=== PATIENT | female | born 1970 | race Caucasian/White ===

== ENCOUNTER → 2016-06-13 | Outpatient (CLI) | payer OTHER ==
--- NOTE | 2016-06-21 00:16 | MA ---
Screening Digital Mammogram With Tomosynthesis and iCAD Indication: Routine screening. Mother diagnosed with breast cancer at the age of 76. Technique: Four views of each breast are obtained including CC and oblique lateral Jensen (implant di splaced) and non-Jensen (implant not displaced) views. Digital breast tomosynthesis was performed in the implant-displaced MLO projection with reconstruction at 1.0 mm slice thickness and composite MLO views reconstructed. This examination is processed by the iCAD computer aided detection system. Comparison: November 2013 Breast density: Type C. Findings: CAD was reviewed. No suspicious microcalcifications, mass, or architectural distortion. Marcin ateral saline implants are unchanged in configuration. Impression: Negative mammograms. BI-RADS 1: Negative Recommendation: Routine screening is recommended in one year, as long as physical examination is anabella ign in this patient with moderately dense breast parenchyma. [facility] will send a result letter to the patient. Negative mammography should not preclude additional workup of a clinically suspicious finding. The patient's information is entered into a reminder system with a target due date for her next mammo gram.
== END ==
LOC: FIMAGING 10:52
DX: Z12.31 Encounter for screening mammogram for malignant neoplasm of breast (principal); Z80.3 Family history of malignant neoplasm of breast
CPT/HCPCS: G0202

== ENCOUNTER → 2016-08-07 | Outpatient (CLI) | payer OTHER ==
[~2016-08-07] MED LIST: GADOBUTROL 10 ML VIAL IVP ONE
== END ==
LOC: FIMAGING 08:24
PROVIDERS: ATTEND Internal Medicine Hematology & Oncology
DX: Z12.39 Encounter for other screening for malignant neoplasm of breast (principal); Z80.3 Family history of malignant neoplasm of breast
CPT/HCPCS: 0159T; 77059; A9585; C8908